=== PATIENT | female | born 1980 | race Caucasian/White ===

== ENCOUNTER 2016-04-11 08:02 | Emergency (ER) | payer OTHER ==
[2016-04-11] MEDS ORDERED: KETOROLAC 30 MG/ML VIAL (J1885) As Ordered ONE (08:34)
[2016-04-11] MEDS ORDERED: ONDANSETRON 4MG/2ML VIAL (J2405) As Ordered ONE (08:34)
[2016-04-11 09:06] LABS: BASO % 0.7 % (0.0-1.0); EOS # 0.2 K/mm3 (0.0-0.50); EOS % 3.4 % (0.0-3.0); LARGE UNSTAINED CELL # 0.1 K/mm3 (0.0-0.4); LARGE UNSTAINED CELL % 1.6 % (0.0-4.0); LYMPH # 1.4 K/mm3 (1.5-4.5); MEAN CORPUSCULAR HGB CONC 33.8 g/dl (32.0-36.5); MEAN CORPUSCULAR VOLUME 94.5 fl (80.0-96.0); MONO # 0.3 K/mm3 (0.0-0.8); MONO % 5.1 % (0.0-5.0); NEUTROPHILS # 4.5 K/mm3 (1.8-7.7); NEUTROPHILS % 68.2 % (36.0-66.0); PLATELET COUNT, AUTOMATED 219 k/mm3 (150-450); RED CELL DISTRIBUTION WIDTH 11.4 % (11.5-14.5); WHITE BLOOD COUNT 6.5 K/mm3 (4.0-10.0)
[2016-04-11 09:31] LABS: ALBUMIN 4.3 GM/DL (3.2-5.2); ALBUMIN/GLOBULIN RATIO 1.19 (1.00-1.93); ALKALINE PHOSPHATASE 66 U/L (45-117); ALT/SGPT 17 U/L (12-78); AMYLASE 25 U/L (25-115); ANION GAP 8 MEQ/L (8-16); AST/SGOT 15 U/L (15-37); BILIRUBIN,DIRECT 0.1 MG/DL (0.0-0.2); BILIRUBIN,TOTAL 0.5 MG/DL (0.2-1.0); BLOOD UREA NITROGEN 12 MG/DL (7-18); CARBON DIOXIDE LEVEL 28 MEQ/L (21-32); CHLORIDE LEVEL 106 MEQ/L (98-107); CREATININE FOR GFR 0.79 MG/DL (0.55-1.02); GLOMERULAR FILTRATION RATE > 60.0 (>60); GLUCOSE, FASTING 95 MG/DL (70-105); SODIUM LEVEL 142 MEQ/L (136-145); TOTAL PROTEIN 7.9 GM/DL (6.4-8.2)
--- NOTE | 2016-04-11 09:53 | REP ---
CT abdomen and pelvis without IV or oral contrast: Renal stone protocol. History: Renal colic. Findings: Digital bow repairer custom radiographs unremarkable. The lung bases are clear. The liver and the spleen are normal in size homogeneous in texture. No adrenal lesion is seen. The gallbladder is unremarkable. No pancreatic abnormality is seen. A normal appendix is observed in the right lower quadrant. Small and large intestinal bowel loops are unremarkable. The uterus is somewhat enlarged. No uterine or adnexal mass is seen. There is a 2 mm intrarenal calculus in the right mid kidney. No ureteral stone or hydronephrosis is seen. There is also a 2 mm intrarenal calculus in the upper pole of the left kidney. There is no evidence of free air. No abdominal wall defect is seen. Urinary bladder is unremarkable but largely empty at the time of scanning. Impression: 1. Mild uterine enlargement. 2. Bilateral intrarenal calculi. There is a 2 mm nonobstructive intrarenal calculus in each kidney. No ureteral calculi seen. No hydronephrosis noted. 3. Normal appendix. 4. No acute intra-abdominal abnormality seen. Signed by Eleazar Marion MD 04/11/2016 12:31 P
--- NOTE | 2016-04-11 10:06 | REP ---
PELVIC ULTRASOUND: Real-time sonographic evaluation of the pelvis is performed utilizing transabdominal and endovaginal technique. Bladder is collapsed. Uterus measures 10.1 x 5.6 x 8.3 cm. Scattered tiny calcifications are seen in the myometrium without focal fibroid. Endometrial thickness is 8 mm with trace endometrial fluid present. Right ovary measures 3.8 x 2.3 x 2.6 cm. There is a small paraovarian cystic structure on the right 1.0 cm in diameter. Left ovary could not be visualized. There is no other evidence of adnexal mass or free fluid. There is no evidence of right ovarian torsion with blood flow seen in the right ovary with duplex Doppler evaluation. IMPRESSION: Endometrial thickness 8 mm with tiny amount of endometrial fluid present. Left ovary could not be visualized. Right ovary demonstrates no torsion. There is a 1 cm right paraovarian cyst. No free fluid. Signed by Cm Lynn MD 04/11/2016 02:00 P
[2016-04-11] MEDS ORDERED: TAMSULOSIN 0.4 MG CAP As Ordered ONE (10:17)
[2016-04-11] MEDS ORDERED: PERCOCET 5MG/325MG TAB As Ordered ONE (10:17)
--- NOTE | 2016-04-11 10:43 | EDDOCDS ---
Physician Documentation [facility] Name: Bing Urias Age: 35 yrs Sex: Female : 1980 Arrival Date: 04/11/2016 Time: 08:02 Bed I4 / M4 Private MD: Disposition: 04/11/16 10:15 Discharged to Home/Self Care. Impression: Calculus of kidney - Bilateral Intrarenal Calculi, Dysmenorrhea, unspecified, Other ovarian cysts - Right, Abdominal and pelvic pain, Nausea and vomiting. - Condition is Stable. - Discharge Instructions: Kidney Stones, [id number], Ovarian Cyst, [id number], Dysmenorrhea, [id number]-if-Akup, Abdominal Pain, Adult, [id number]. - Prescriptions for Flomax 0.4 mg Oral Capsule, Sust. Release 24 hr - take 1 capsule by ORAL route once daily 1/2 hour following the same meal each day; 30 capsule. ZOFRAN ODT 4 mg - dissolve 1 tablet by ORAL route 4 times per day As needed do not chew, do not swallow whole; 10 tablet. Naprosyn 500 mg Oral Tablet - take 1 tablet by ORAL route 2 times per day take with food; 30 tablet. Percocet 5- 325 mg Oral Tablet - take 1 tablet by ORAL route every 6 hours As needed MDD: 4 tabs; 20 tablet. - Medication Reconciliation, Local Pharmacy Hours, Work Release Form - 2 day form. - Follow up: [facility]; When: 1 - 2 days; Reason: Recheck today's complaints, Continuance of care. Follow up: Emergency Department; Reason: Worsening of conditions. Follow up: [facility]; When: Call to arrange an appointment; Reason: Further diagnostic work-up, Recheck today's complaints, Continuance of care. Follow up: [facility] Mata; When: Call to arrange an appointment; Reason: Further diagnostic work-up, Recheck today's complaints, Continuance of care. - Problem is new. - Symptoms have improved. Historical: - Allergies: PENICILLINS; - Home Meds: 1. acetaminophen 325 mg oral tab 2 tabs (Last dose: 04/11/2016 00:02) - PMHx: Chronic Back pain; Migraine Headaches; Seasonal Allergies; TMJ; - PSHx: wisdom teeth extraction; - Social history: Smoking status: Patient states was never smoker of tobacco. No barriers to communication noted, The patient speaks fluent Italian, Speaks appropriately for age. - Family history: Not pertinent. - : The pt / caregiver states he / she is not on anticoagulants. Home medication list is obtained from the patient. - Exposure Risk Screening:: None identified. IT TECHNICAL SUPPORT SPECIALIST: 04/11 08:14 LMP 03/19/2016 hs1 Vital Signs: 08:14 BP 136 / 89; Pulse 72; Resp 18; Temp 97.8; Pulse Ox 99% ; Weight 92.99 kg / 205.01 lbs hs1 (R); Height 5 ft. 9 in. (175.26 cm); Pain 10/10; 09:28 BP 124 / 79; Pulse 60; Resp 18; Temp 98.4; Pulse Ox 100% ; Pain 9/10; jam1 10:27 Pulse 64; Resp 20; Temp 98.0; Pulse Ox 98% ; Pain 10/10; jam1 10:39 BP 140 / 78 LA Sitting (man/lg); kpj 08:14 Body Mass Index 30.27 (92.99 kg, 175.26 cm) hs1 MDM: 08:28 NS 0.9% 1000 ml IV at bolus once ordered. ef1 08:28 Ondansetron 4 mg IVP once ordered. ef1 08:28 ketorolac 30 mg IVP once ordered. ef1 08:28 IV Saline Lock ordered. ef1 08:28 Undress patient appropriately for examination ordered. ef1 08:28 UCG by Nursing ordered. ef1 08:29 Amylase Ordered. EDMS 08:29 Basic Metabolic Profile Ordered. EDMS 08:29 CBC with Diff Ordered. EDMS 08:29 Lipase Ordered. EDMS 08:29 Liver Profile Ordered. EDMS 08:29 Urinalysis Ordered. EDMS 08:29 Urine Culture Ordered. EDMS 08:30 CT ABD & PELVIS: No Contrast Ordered. EDMS 08:30 NOTHING BY MOUTH+DIET ordered. EDMS 08:30 -US Pelvic Non-Ob Complete Ordered. EDMS 08:31 DUPLEX SCAN LIMITED (DOPPLER)+US Ordered. EDMS 08:31 Financial registration complete. lg 08:34 [facility] [place] was scanned into [employer] and attached to record. lg 09:09 Transvaginal NON- US Ordered. EDMS 09:26 CBC with Diff Reviewed. ef1 09:26 Urinalysis Reviewed. ef1 09:47 Amylase Reviewed. ef1 09:47 Basic Metabolic Profile Reviewed. ef1 09:47 Lipase Reviewed. ef1 09:47 Liver Profile Reviewed. ef1 10:14 Tamsulosin Extended Release 24 hour Capsule 0.4 mg PO once ordered. ef1 10:14 oxyCODONE-acetaminophen 5 mg-325 mg 1 tabs PO once ordered. ef1 Point of Care Testing: Urine : 08:36 hCG Reading: Negative; jam1 Ranges: Administered Medications: 08:48 Drug: NS 0.9% 1000 ml [sodium chloride 0.9 % intravenous solution] Route: IV; Rate: kpj bolus; Site: right antecubital; 10:39 Follow up: IV Status: Infusion discontinued [facility] 08:48 Drug: Ondansetron 4 mg [ondansetron HCl 2 mg/mL intravenous solution (2 mL)] Route: kpj IVP; Site: right antecubital; 09:33 Follow up: Response: Nausea is decreased [facility] 08:50 Drug: ketorolac 30 mg [ketorolac 30 mg/mL (1 mL) injection solution (1 mL)] Route: IVP; kpj Site: right antecubital; 09:33 Follow up: Response: Pain is unchanged, physician notified j 10:20 Drug: Tamsulosin 0.4 mg [tamsulosin 0.4 mg capsule (1 caps)] Route: PO; [facility] 10:38 Follow up: Response: Pt left department before re-evaluation is appropriate [facility] 10:20 Drug: oxyCODONE-acetaminophen 1 tabs [oxycodone-acetaminophen 5 mg-325 mg tablet (1 kpj tabs)] Route: PO; 10:38 Follow up: Response: Confirmed pt not driving.; Pt left department before re-evaluation kpj is appropriate Signatures: Dispatcher [employer] Galilea Johnston RN RN j Ciera Kat, Shreyas Reg lg Brooke Lewis, PA-C PA-C ef1 Angela Zafar RN RN hs1 The chart was reviewed and I authenticate all verbal orders and agree with the evaluation and treatment provided.Attachments: 08:34 [facility] Payment Agreement lg MTDD
--- NOTE | 2016-04-11 10:43 | EDDOCDS ---
Nurse's Notes [facility] Name: Bing Urias Age: 35 yrs Sex: Female : 1980 Arrival Date: 04/11/2016 Time: 08:02 Bed I4 / M4 Private MD: Diagnosis: Calculus of kidney-Bilateral Intrarenal Calculi;Dysmenorrhea, unspecified;Other ovarian cysts-Right;Abdominal and pelvic pain;Nausea and vomiting Presentation: 04/11 08:08 Presenting complaint: Patient states: was seen in [place] [facility] and was diagnosed hs1 with dysfunctional uterine bleeding. States pain started Sunday and bleeding started Sunday. Patient states not bleeding at present spotting (red to dark red). Patient here this morning due to pain now across entire abdomen and also in back. Risk factors: The patient reports no loss of conciousness prior to arrival. This patient has not had a hysterectomy. This patient has not begun menopause. Adult Sepsis Screening: The patient does not have new or worsening altered mentation. Patient's respiratory rate is less than 22. Systolic blood pressure is greater than 100. Patient has a qSOFA score of 0- Negative Sepsis Screen. Suicide/Homicide risk assessment- the patient denies having any suicidal and/or homicidal ideations and does not present with any other emotional, behavioral or mental health complaints. Status: The patient is an active duty hotel services sales representative. Transition of care: patient was not received from another setting of care. 08:08 Acuity: PORFIRIO Level 3 hs1 08:08 Method Of Arrival: Walkin/Carried/Asstd hs1 Triage Assessment: 08:13 General: Appears uncomfortable, Behavior is appropriate for age, cooperative. Pain: hs1 Pain currently is 10 out of 10 on a pain scale. HIV screening NA for this visit Offered previously. : Reports vaginal bleeding that is spotty. MATERIALS PLANNER: 08:14 LMP 03/19/2016 hs1 Historical: - Allergies: PENICILLINS; - Home Meds: 1. acetaminophen 325 mg oral tab 2 tabs (Last dose: 04/11/2016 00:02) - PMHx: Chronic Back pain; Migraine Headaches; Seasonal Allergies; TMJ; - PSHx: wisdom teeth extraction; - Social history: Smoking status: Patient states was never smoker of tobacco. No barriers to communication noted, The patient speaks fluent Bulgarian, Speaks appropriately for age. - Family history: Not pertinent. - : The pt / caregiver states he / she is not on anticoagulants. Home medication list is obtained from the patient. - Exposure Risk Screening:: None identified. Screenin:15 Screening information is obtained from the patient. Fall risk: No risks identified. hs1 Assistance ADL's: requires no assistance with activities of daily living. Abuse/DV Screen: The patient / caregiver reports he/she is: not in a situation that causes fear, pain or injury. Nutritional screening: No deficits noted. Advance Directives: There is no active DNR order. home support is adequate. Assessment: 08:45 General: Appears in no apparent distress, well nourished, well groomed, Behavior is kpj appropriate for age, pleasant. Pain: Location: abdomen Pain currently is 9 out of 10 on a pain scale. Pain radiates to low back area and mid back area Quality of pain is described as aching. Neurological: Level of Consciousness is awake, alert, Oriented to person, place, time. Respiratory: Airway is patent Respiratory effort is even, unlabored, Respiratory pattern is regular, symmetrical. GI: Abdomen is non- distended obese, Bowel sounds present X 4 quads. Abd is soft X 4 quads Abd is tender to palpation X 4 quads. Reports diarrhea, lower abdominal pain, upper abd pain, nausea, vomiting. : pt reports spotty vaginal bleeding. Derm: Skin is pink, warm & dry. 09:31 General: Appears in no apparent distress, Behavior is appropriate for age. Pain: kpj Location: abdomen Pain currently is 9 out of 10 on a pain scale. Pain radiates to mid back area and low back area Quality of pain is described as aching. Neurological: Level of Consciousness is awake, alert. Respiratory: Airway is patent Respiratory effort is even, unlabored. GI: Reports lower abdominal pain, upper abd pain, nausea. Derm: Skin is pink, warm & dry. 10:39 General: Appears uncomfortable, Behavior is appropriate for age, pleasant. Pain: kpj Location: abdomen Pain currently is 9 out of 10 on a pain scale. Pain radiates to mid back area and low back area Quality of pain is described as aching. Neurological: Level of Consciousness is awake, alert. Respiratory: Airway is patent Respiratory effort is even, unlabored, Respiratory pattern is regular, symmetrical. GI: Reports lower abdominal pain, upper abd pain, nausea. : Reports vaginal bleeding that is spotty. Derm: Skin is pink, warm & dry. Vital Signs: 08:14 BP 136 / 89; Pulse 72; Resp 18; Temp 97.8; Pulse Ox 99% ; Weight 92.99 kg (R); Height 5 hs1 ft. 9 in. (175.26 cm); Pain 10/10; 09:28 BP 124 / 79; Pulse 60; Resp 18; Temp 98.4; Pulse Ox 100% ; Pain 9/10; jam1 10:27 Pulse 64; Resp 20; Temp 98.0; Pulse Ox 98% ; Pain 10/10; jam1 10:39 BP 140 / 78 LA Sitting (man/lg); kpj 08:14 Body Mass Index 30.27 (92.99 kg, 175.26 cm) hs1 Vitals: 08:14 Log In Time: April 11, 2016 at 08:04. hs1 ED Course: 08:04 Patient visited by Nahomy Green. jp5 08:04 Patient moved to Waiting jp5 08:11 Triage Initiated hs1 08:15 The patient / caregiver is instructed regarding the plan of care and ED course. hs1 08:18 Patient moved to I4 / M4 hs1 08:20 Brooke Lewis PA-C is PHCP. ef1 08:20 Tyron Carvajal MD is Attending Physician. ef1 08:20 Patient visited by Brooke Lewis PA-C. ef1 08:24 Pt greeted and oriented to ED. Patient advised of names of staff involved in care, jam1 location of call mistry, wait times and NPO status. Patient has correct armband on for positive identification. Placed in gown. Bed in low position. Call light in reach. Side rails up X 1. Door closed. 08:33 Urinalysis Sent. jam1 08:33 Urine Culture Sent. jam1 08:34 [facility] Payment Agreement was scanned into [employer] and attached to record. lg 08:45 Resting quietly. kpj 08:48 Inserted saline lock: 20 gauge in left antecubital area. kpj 08:50 Patient visited by Brooke Lewis PA-C. ef1 08:52 Patient moved to Ultrasound eg2 08:55 Amylase Sent. kpj 08:55 Basic Metabolic Profile Sent. kpj 08:55 CBC with Diff Sent. kpj 08:55 Lipase Sent. kpj 08:55 Liver Profile Sent. kpj 09:24 Patient moved to I4 / M4 kpj 09:26 Patient visited by Brooke Lewis PA-C. ef1 09:31 No apparent distress. Resting quietly. Awaiting lab results. Waiting for radiology kp results. 09:31 The patient / caregiver is instructed regarding the plan of care and ED course. Diet: [facility] Patient is NPO. 09:31 IV is patent, is intact, is free of redness or swelling. solution is infusing as [facility] ordered. 09:47 Patient visited by Brooke Lewis PA-C. ef1 09:55 Patient has correct armband on for positive identification. Bed in low position. Call jam1 light in reach. Side rails up X 1. Adult w/ patient. Door closed. 10:09 CT ABD & PELVIS: No Contrast Returned. EDMS 10:09 -US Pelvic Non-Ob Complete Returned. EDMS 10:14 Patient visited by Brooke Lewis PA-C. ef1 10:15 JOSIE Griffith is Referral Physician. ef1 10:15 Angel Brody OB is Referral Physician. ef1 10:20 Luisito Mata is Referral Physician. ef1 10:39 Discontinued lock intact, bleeding controlled, pressure dressing applied, No kpj redness/swelling at site. No procedures done that require assistance. Administered Medications: 08:48 Drug: NS 0.9% 1000 ml [sodium chloride 0.9 % intravenous solution] Route: IV; Rate: kpj bolus; Site: right antecubital; 10:39 Follow up: IV Status: Infusion discontinued kpj 08:48 Drug: Ondansetron 4 mg [ondansetron HCl 2 mg/mL intravenous solution (2 mL)] Route: kpj IVP; Site: right antecubital; 09:33 Follow up: Response: Nausea is decreased kpj 08:50 Drug: ketorolac 30 mg [ketorolac 30 mg/mL (1 mL) injection solution (1 mL)] Route: IVP; [facility] Site: right antecubital; 09:33 Follow up: Response: Pain is unchanged, physician notified kpj 10:20 Drug: Tamsulosin 0.4 mg [tamsulosin 0.4 mg capsule (1 caps)] Route: PO; kpj 10:38 Follow up: Response: Pt left department before re-evaluation is appropriate [facility] 10:20 Drug: oxyCODONE-acetaminophen 1 tabs [oxycodone-acetaminophen 5 mg-325 mg tablet (1 kpj tabs)] Route: PO; 10:38 Follow up: Response: Confirmed pt not driving.; Pt left department before re-evaluation [facility] is appropriate Point of Care Testing: Urine : 08:36 hCG Reading: Negative; jam1 Ranges: Intake: 10:39 IV: 700.00ml (NS); Total: 700.00ml. [facility] Order Results: Lab Order: Amylase; SPEC'M 04/11/16 08:53 Test: AMYLASE; Value: 25; Range: 25-115; Units: U/L; Status: F Lab Order: Basic Metabolic Profile; SPEC'M 04/11/16 08:53 Test: GLUCOSE, FASTING; Value: 95; Range: 70-105; Units: MG/DL; Status: F Test: BLOOD UREA NITROGEN; Value: 12; Range: 7-18; Units: MG/DL; Status: F Test: CREATININE FOR GFR; Value: 0.79; Range: 0.55-1.02; Units: MG/DL; Status: F Test: GLOMERULAR FILTRATION RATE; Value: > 60.0; Range: >60; Status: F Test: SODIUM LEVEL; Value: 142; Range: 136-145; Units: MEQ/L; Status: F Test: POTASSIUM SERUM; Value: 4.0; Range: 3.5-5.1; Units: MEQ/L; Status: F Test: CHLORIDE LEVEL; Value: 106; Range: 98-107; Units: MEQ/L; Status: F Test: CARBON DIOXIDE LEVEL; Value: 28; Range: 21-32; Units: MEQ/L; Status: F Test: ANION GAP; Value: 8; Range: 8-16; Units: MEQ/L; Status: F Test: CALCIUM LEVEL; Value: 9.0; Range: 8.5-10.1; Units: MG/DL; Status: F Test Note: ; Units are mL/min/1.73 m2 Chronic Kidney Disease Staging per NKF: Stage I & II GFR >=60 Normal to Mildly Decreased Stage III GFR 30-59 Moderately Decreased Stage IV GFR 15-29 Severely Decreased Stage V GFR <15 Very Little GFR Left ESRD GFR <15 on CODE ENFORCEMENT SUPERVISOR Lab Order: CBC with Diff; SPEC'M 04/11/16 08:53 Test: WHITE BLOOD COUNT; Value: 6.5; Range: 4.0-10.0; Units: K/mm3; Status: F Test: RED BLOOD COUNT; Value: 4.13; Range: 4.00-5.40; Units: M/mm3; Status: F Test: HEMOGLOBIN; Value: 13.2; Range: 12.0-16.0; Units: g/dl; Status: F Test: HEMATOCRIT; Value: 39.1; Range: 36.0-47.0; Units: %; Status: F Test: MEAN CORPUSCULAR VOLUME; Value: 94.5; Range: 80.0-96.0; Units: fl; Status: F Test: MEAN CORPUSCULAR HEMOGLOBIN; Value: 32.0; Range: 27.0-33.0; Units: pg; Status: F Test: MEAN CORPUSCULAR HGB CONC; Value: 33.8; Range: 32.0-36.5; Units: g/dl; Status: F Test: RED CELL DISTRIBUTION WIDTH; Value: 11.4; Range: 11.5-14.5; Abnormal: Below low normal; Units: %; Status: F Test: PLATELET COUNT, AUTOMATED; Value: 219; Range: 150-450; Units: k/mm3; Status: F Test: NEUTROPHILS %; Value: 68.2; Range: 36.0-66.0; Abnormal: Above high normal; Units: %; Status: F Test: LYMPH %; Value: 21.0; Range: 24.0-44.0; Abnormal: Below low normal; Units: %; Status: F Test: MONO %; Value: 5.1; Range: 0.0-5.0; Abnormal: Above high normal; Units: %; Status: F Test: EOS %; Value: 3.4; Range: 0.0-3.0; Abnormal: Above high normal; Units: %; Status: F Test: BASO %; Value: 0.7; Range: 0.0-1.0; Units: %; Status: F Test: LARGE UNSTAINED CELL %; Value: 1.6; Range: 0.0-4.0; Units: %; Status: F Test: NEUTROPHILS #; Value: 4.5; Range: 1.8-7.7; Units: K/mm3; Status: F Test: LYMPH #; Value: 1.4; Range: 1.5-4.5; Abnormal: Below low normal; Units: K/mm3; Status: F Test: MONO #; Value: 0.3; Range: 0.0-0.8; Units: K/mm3; Status: F Test: EOS #; Value: 0.2; Range: 0.0-0.50; Units: K/mm3; Status: F Test: BASO #; Value: 0.0; Range: 0.0-0.2; Units: K/mm3; Status: F Test: LARGE UNSTAINED CELL #; Value: 0.1; Range: 0.0-0.4; Units: K/mm3; Status: F Lab Order: Lipase; SPEC'M 04/11/16 08:53 Test: LIPASE; Value: 144; Range: 73-393; Units: U/L; Status: F Lab Order: Liver Profile; SPEC'M 04/11/16 08:53 Test: AST/SGOT; Value: 15; Range: 15-37; Units: U/L; Status: F Test: ALT/SGPT; Value: 17; Range: 12-78; Units: U/L; Status: F Test: ALKALINE PHOSPHATASE; Value: 66; Range: 45-117; Units: U/L; Status: F Test: BILIRUBIN,TOTAL; Value: 0.5; Range: 0.2-1.0; Units: MG/DL; Status: F Test: BILIRUBIN,DIRECT; Value: 0.1; Range: 0.0-0.2; Units: MG/DL; Status: F Test: TOTAL PROTEIN; Value: 7.9; Range: 6.4-8.2; Units: GM/DL; Status: F Test: ALBUMIN; Value: 4.3; Range: 3.2-5.2; Units: GM/DL; Status: F Test: ALBUMIN/GLOBULIN RATIO; Value: 1.19; Range: 1.00-1.93; Status: F Lab Order: Urinalysis; SPEC'M 04/11/16 08:34 Test: APPEARANCE, URINE; Value: HAZY; Range: CLEAR; Status: F Test: COLOR, URINE; Value: YELLOW; Range: YELLOW; Status: F Test: PH,URINE; Value: 5.0; Range: 5.0-9.0; Units: UNITS; Status: F Test: SPECIFIC GRAVITY URINE AUTO; Value: 1.025; Range: 1.002-1.035; Status: F Test: PROTEIN, URINE AUTO; Value: 1+; Range: NEGATIVE; Abnormal: Above high normal; Units: mg/dL; Status: F Test: GLUCOSE, URINE (UA) AUTO; Value: NEGATIVE; Range: NEGATIVE; Units: mg/dL; Status: F Test: KETONE, URINE AUTO; Value: NEGATIVE; Range: NEGATIVE; Units: mg/dL; Status: F Test: UROBILINOGEN, URINE AUTO; Value: 0.2; Range: 0.0-2.0; Units: mg/dL; Status: F Test: BILIRUBIN, URINE AUTO; Value: NEGATIVE; Range: NEGATIVE; Status: F Test: NITRITE, URINE AUTO; Value: NEGATIVE; Range: NEGATIVE; Status: F Test: LEUKOCYTE ESTERASE, URINE AUTO; Value: NEGATIVE; Range: NEGATIVE; Status: F Test: BLOOD, URINE BLOOD; Value: 1+; Range: NEGATIVE; Abnormal: Above high normal; Status: F Test: WBC, URINE AUTO; Value: 1; Range: 0-3; Units: /HPF; Status: F Test: RBC, URINE AUTO; Value: 3; Range: 0-3; Units: /HPF; Status: F Test: BACTERIA, URINE AUTO; Value: NEGATIVE; Range: NEGATIVE; Status: F Test: SQUAMOUS EPITHELIAL CELL UR AU; Value: 6; Range: 0-6; Units: /HPF; Status: F Test: MUCUS, URINE; Value: MODERATE; Range: NEGATIVE; Status: F Test: HYALINE CAST, URINE AUTO; Value: 0; Range: 0-1; Units: /LPF; Status: F Radiology Order: CT ABD & PELVIS: No Contrast Test: CT ABD & PELVIS: No Contrast REASON FOR EXAMINATION: Renal colic; CT abdomen and pelvis without IV or oral contrast: Renal stone protocol.; ; History: Renal colic.; ; Findings: Digital professional driver radiographs unremarkable. The lung bases are clear.; The liver and the spleen are normal in size homogeneous in texture. No adrenal; lesion is seen. The gallbladder is unremarkable. No pancreatic abnormality is; seen. A normal appendix is observed in the right lower quadrant. Small and; large intestinal bowel loops are unremarkable. The uterus is somewhat enlarged.; No uterine or adnexal mass is seen.; ; There is a 2 mm intrarenal calculus in the right mid kidney. No ureteral stone; or hydronephrosis is seen. There is also a 2 mm intrarenal calculus in the upper; pole of the left kidney. There is no evidence of free air. No abdominal wall; defect is seen. Urinary bladder is unremarkable but largely empty at the time of; scanning.; ; Impression:; ; ; 1. Mild uterine enlargement.; 2. Bilateral intrarenal calculi. There is a 2 mm nonobstructive intrarenal; calculus in each kidney. No ureteral calculi seen. No hydronephrosis noted.; 3. Normal appendix.; 4. No acute intra-abdominal abnormality seen.; ; Unreviewed; Radiology Order: -US Pelvic Non-Ob Complete Test: -US Pelvic Non-Ob Complete REASON FOR EXAMINATION: Vaginal Bleeding - Nn-; PELVIC ULTRASOUND:; ; Real-time sonographic evaluation of the pelvis is performed utilizing; transabdominal and endovaginal technique. Bladder is collapsed. Uterus measures; 10.1 x 5.6 x 8.3 cm. Scattered tiny calcifications are seen in the myometrium; without focal fibroid. Endometrial thickness is 8 mm with trace endometrial; fluid present. Right ovary measures 3.8 x 2.3 x 2.6 cm. There is a small; paraovarian cystic structure on the right 1.0 cm in diameter. Left ovary could; not be visualized. There is no other evidence of adnexal mass or free fluid.; There is no evidence of right ovarian torsion with blood flow seen in the right; ovary with duplex Doppler evaluation.; ; IMPRESSION:; Endometrial thickness 8 mm with tiny amount of endometrial fluid present. Left; ovary could not be visualized. Right ovary demonstrates no torsion. There is a; 1 cm right paraovarian cyst. No free fluid.; ; Unreviewed; Outcome: 10:15 Discharge ordered by Provider. ef1 10:39 Discharge Assessment: Patient awake, alert and oriented x 3. No cognitive and/or kpj functional deficits noted. Patient verbalized understanding of disposition instructions. patient administered narcotics - yes. Pt provided with safe discharge. The following High Risk Discharge criteria are identified: None. Discharged to home ambulatory, with friend. Condition: stable. Discharge instructions given to patient, Instructed on discharge instructions, follow up and referral plans. medication usage, no driving heavy equipment, no drinking with medication, Demonstrated understanding of instructions, medications, Pt was receptive of discharge instructions/ teaching. Prescriptions given X 4, Work note provided to patient. CT Study completed. Ultrasound Study completed. Property sent home with patient. 10:42 Patient left the ED. [facility] Signatures: Dispatcher [employer] EDMS Galilea José, RN RN Francoise Busch, OTA OTA jam1 Ciera Kat, Reg Reg lg Nisha Flores eg2 Brooke Lewis, PA-C PAReshmaC ef1 Angela Zafar RN RN hs1 Nahomy Green 5 MTDD
--- NOTE | 2016-04-13 11:43 | EDDOCDS ---
Physician Documentation [facility] Name: Bing Urias Age: 35 yrs Sex: Female : 1980 Arrival Date: 04/11/2016 Time: 08:02 Bed I4 / M4 Private MD: Disposition: 04/11/16 10:15 Discharged to Home/Self Care. Impression: Calculus of kidney - Bilateral Intrarenal Calculi, Dysmenorrhea, unspecified, Other ovarian cysts - Right, Abdominal and pelvic pain, Nausea and vomiting. - Condition is Stable. - Discharge Instructions: Kidney Stones, [id number], Ovarian Cyst, Hybb-[id number], Dysmenorrhea, [id number]-[id number], Abdominal Pain, Adult, [id number]. - Prescriptions for Flomax 0.4 mg Oral Capsule, Sust. Release 24 hr - take 1 capsule by ORAL route once daily 1/2 hour following the same meal each day; 30 capsule. ZOFRAN ODT 4 mg - dissolve 1 tablet by ORAL route 4 times per day As needed do not chew, do not swallow whole; 10 tablet. Naprosyn 500 mg Oral Tablet - take 1 tablet by ORAL route 2 times per day take with food; 30 tablet. Percocet 5- 325 mg Oral Tablet - take 1 tablet by ORAL route every 6 hours As needed MDD: 4 tabs; 20 tablet. - Medication Reconciliation, Local Pharmacy Hours, Work Release Form - 2 day form. - Follow up: [facility]; When: 1 - 2 days; Reason: Recheck today's complaints, Continuance of care. Follow up: Emergency Department; Reason: Worsening of conditions. Follow up: OB Angel Brody; When: Call to arrange an appointment; Reason: Further diagnostic work-up, Recheck today's complaints, Continuance of care. Follow up: Luisito Mata; When: Call to arrange an appointment; Reason: Further diagnostic work-up, Recheck today's complaints, Continuance of care. - Problem is new. - Symptoms have improved. Historical: - Allergies: PENICILLINS; - Home Meds: 1. acetaminophen 325 mg oral tab 2 tabs (Last dose: 04/11/2016 00:02) - PMHx: Chronic Back pain; Migraine Headaches; Seasonal Allergies; TMJ; - PSHx: wisdom teeth extraction; - Social history: Smoking status: Patient states was never smoker of tobacco. No barriers to communication noted, The patient speaks fluent Belarusian, Speaks appropriately for age. - Family history: Not pertinent. - : The pt / caregiver states he / she is not on anticoagulants. Home medication list is obtained from the patient. - Exposure Risk Screening:: None identified. WRAP TURNER: 04/11 08:14 LMP 03/19/2016 hs1 Vital Signs: 08:14 BP 136 / 89; Pulse 72; Resp 18; Temp 97.8; Pulse Ox 99% ; Weight 92.99 kg / 205.01 lbs hs1 (R); Height 5 ft. 9 in. (175.26 cm); Pain 10/10; 09:28 BP 124 / 79; Pulse 60; Resp 18; Temp 98.4; Pulse Ox 100% ; Pain 9/10; jam1 10:27 Pulse 64; Resp 20; Temp 98.0; Pulse Ox 98% ; Pain 10/10; jam1 10:39 BP 140 / 78 LA Sitting (man/lg); kpj 08:14 Body Mass Index 30.27 (92.99 kg, 175.26 cm) hs1 MDM: 08:28 NS 0.9% 1000 ml IV at bolus once ordered. ef1 08:28 Ondansetron 4 mg IVP once ordered. ef1 08:28 ketorolac 30 mg IVP once ordered. ef1 08:28 IV Saline Lock ordered. ef1 08:28 Undress patient appropriately for examination ordered. ef1 08:28 UCG by Nursing ordered. ef1 08:29 Amylase Ordered. EDMS 08:29 Basic Metabolic Profile Ordered. EDMS 08:29 CBC with Diff Ordered. EDMS 08:29 Lipase Ordered. EDMS 08:29 Liver Profile Ordered. EDMS 08:29 Urinalysis Ordered. EDMS 08:29 Urine Culture Ordered. EDMS 08:30 CT ABD & PELVIS: No Contrast Ordered. EDMS 08:30 NOTHING BY MOUTH+DIET ordered. EDMS 08:30 -US Pelvic Non-Ob Complete Ordered. EDMS 08:31 DUPLEX SCAN LIMITED (DOPPLER)+US Ordered. EDMS 08:31 Financial registration complete. lg 08:34 [facility] Payment Agreement was scanned into [employer] and attached to record. lg 09:09 Transvaginal NON- US Ordered. EDMS 09:26 CBC with Diff Reviewed. ef1 09:26 Urinalysis Reviewed. ef1 09:47 Amylase Reviewed. ef1 09:47 Basic Metabolic Profile Reviewed. ef1 09:47 Lipase Reviewed. ef1 09:47 Liver Profile Reviewed. ef1 10:14 Tamsulosin Extended Release 24 hour Capsule 0.4 mg PO once ordered. ef1 10:14 oxyCODONE-acetaminophen 5 mg-325 mg 1 tabs PO once ordered. ef1 14:53 T-Sheet-- Draft Copy was scanned into [employer] and attached to record. gb 14:54 Radiology Report was scanned into [employer] and attached to record. Point of Care Testing: Urine : 08:36 hCG Reading: Negative; jam1 Ranges: Administered Medications: 08:48 Drug: NS 0.9% 1000 ml [sodium chloride 0.9 % intravenous solution] Route: IV; Rate: kpj bolus; Site: right antecubital; 10:39 Follow up: IV Status: Infusion discontinued [facility] 08:48 Drug: Ondansetron 4 mg [ondansetron HCl 2 mg/mL intravenous solution (2 mL)] Route: kpj IVP; Site: right antecubital; 09:33 Follow up: Response: Nausea is decreased kp 08:50 Drug: ketorolac 30 mg [ketorolac 30 mg/mL (1 mL) injection solution (1 mL)] Route: IVP; [facility] Site: right antecubital; 09:33 Follow up: Response: Pain is unchanged, physician notified j 10:20 Drug: Tamsulosin 0.4 mg [tamsulosin 0.4 mg capsule (1 caps)] Route: PO; kpj 10:38 Follow up: Response: Pt left department before re-evaluation is appropriate kpj 10:20 Drug: oxyCODONE-acetaminophen 1 tabs [oxycodone-acetaminophen 5 mg-325 mg tablet (1 kpj tabs)] Route: PO; 10:38 Follow up: Response: Confirmed pt not driving.; Pt left department before re-evaluation kpj is appropriate Signatures: Dispatcher [employer] EDMS Galilea José RN RN kpj Julissa Serna, Reg Reg gb Ciera Kat, Reg Reg lg Brooke Lewis, PA-C PA-C ef1 Angela Zafar, RN RN hs1 The chart was reviewed and I authenticate all verbal orders and agree with the evaluation and treatment provided.Attachments: 08:34 [facility] Payment Agreement lg 14:53 T-Sheet-- Draft Copy gb Chart Complete MTDD
--- NOTE | 2016-04-13 11:43 | EDDOCDS ---
Physician Documentation [facility] Name: Bing Urias Age: 35 yrs Sex: Female : 1980 Arrival Date: 04/11/2016 Time: 08:02 Bed I4 / M4 Private MD: Disposition: 04/11/16 10:15 Discharged to Home/Self Care. Impression: Calculus of kidney - Bilateral Intrarenal Calculi, Dysmenorrhea, unspecified, Other ovarian cysts - Right, Abdominal and pelvic pain, Nausea and vomiting. - Condition is Stable. - Discharge Instructions: Kidney Stones, Bzmi-og-Vnmh, Ovarian Cyst, Qnqq-ho-Yxbf, Dysmenorrhea, Asvv-kj-Chwk, Abdominal Pain, Adult, Xuwr-rg-Ymrq. - Prescriptions for Flomax 0.4 mg Oral Capsule, Sust. Release 24 hr - take 1 capsule by ORAL route once daily 1/2 hour following the same meal each day; 30 capsule. ZOFRAN ODT 4 mg - dissolve 1 tablet by ORAL route 4 times per day As needed do not chew, do not swallow whole; 10 tablet. Naprosyn 500 mg Oral Tablet - take 1 tablet by ORAL route 2 times per day take with food; 30 tablet. Percocet 5- 325 mg Oral Tablet - take 1 tablet by ORAL route every 6 hours As needed MDD: 4 tabs; 20 tablet. - Medication Reconciliation, Local Pharmacy Hours, Work Release Form - 2 day form. - Follow up: [facility]; When: 1 - 2 days; Reason: Recheck today's complaints, Continuance of care. Follow up: Emergency Department; Reason: Worsening of conditions. Follow up: OB Angel Brody; When: Call to arrange an appointment; Reason: Further diagnostic work-up, Recheck today's complaints, Continuance of care. Follow up: Luisito Mata; When: Call to arrange an appointment; Reason: Further diagnostic work-up, Recheck today's complaints, Continuance of care. - Problem is new. - Symptoms have improved. Historical: - Allergies: PENICILLINS; - Home Meds: 1. acetaminophen 325 mg oral tab 2 tabs (Last dose: 04/11/2016 00:02) - PMHx: Chronic Back pain; Migraine Headaches; Seasonal Allergies; TMJ; - PSHx: wisdom teeth extraction; - Social history: Smoking status: Patient states was never smoker of tobacco. No barriers to communication noted, The patient speaks fluent Swedish, Speaks appropriately for age. - Family history: Not pertinent. - : The pt / caregiver states he / she is not on anticoagulants. Home medication list is obtained from the patient. - Exposure Risk Screening:: None identified. 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 9 in. (175.26 cm); Pain 10/10; 09:28 BP 124 / 79; Pulse 60; Resp 18; Temp 98.4; Pulse Ox 100% ; Pain 9/10; jam1 10:27 Pulse 64; Resp 20; Temp 98.0; Pulse Ox 98% ; Pain 10/10; jam1 10:39 BP 140 / 78 LA Sitting (man/lg); kpj 08:14 Body Mass Index 30.27 (92.99 kg, 175.26 cm) hs1 MDM: 08:28 NS 0.9% 1000 ml IV at bolus once ordered. ef1 08:28 Ondansetron 4 mg IVP once ordered. ef1 08:28 ketorolac 30 mg IVP once ordered. ef1 08:28 IV Saline Lock ordered. ef1 08:28 Undress patient appropriately for examination ordered. ef1 08:28 UCG by Nursing ordered. ef1 08:29 Amylase Ordered. EDMS 08:29 Basic Metabolic Profile Ordered. EDMS 08:29 CBC with Diff Ordered. EDMS 08:29 Lipase Ordered. EDMS 08:29 Liver Profile Ordered. EDMS 08:29 Urinalysis Ordered. EDMS 08:29 Urine Culture Ordered. EDMS 08:30 CT ABD & PELVIS: No Contrast Ordered. EDMS 08:30 NOTHING BY MOUTH+DIET ordered. EDMS 08:30 -US Pelvic Non-Ob Complete Ordered. EDMS 08:31 DUPLEX SCAN LIMITED (DOPPLER)+US Ordered. EDMS 08:31 Financial registration complete. lg 08:34 [place] [place] Payment Agreement was scanned into [employer] and attached to record. lg 09:09 Transvaginal NON- US Ordered. EDMS 09:26 CBC with Diff Reviewed. ef1 09:26 Urinalysis Reviewed. ef1 09:47 Amylase Reviewed. ef1 09:47 Basic Metabolic Profile Reviewed. ef1 09:47 Lipase Reviewed. ef1 09:47 Liver Profile Reviewed. ef1 10:14 Tamsulosin Extended Release 24 hour Capsule 0.4 mg PO once ordered. ef1 10:14 oxyCODONE-acetaminophen 5 mg-325 mg 1 tabs PO once ordered. ef1 14:53 T-Sheet-- Draft Copy was scanned into [employer] and attached to record. gb 14:54 Radiology Report was scanned into [employer] and attached to record. Point of Care Testing: Urine : 08:36 hCG Reading: Negative; jam1 Ranges: Administered Medications: 08:48 Drug: NS 0.9% 1000 ml [sodium chloride 0.9 % intravenous solution] Route: IV; Rate: kpj bolus; Site: right antecubital; 10:39 Follow up: IV Status: Infusion discontinued [facility] 08:48 Drug: Ondansetron 4 mg [ondansetron HCl 2 mg/mL intravenous solution (2 mL)] Route: kpj IVP; Site: right antecubital; 09:33 Follow up: Response: Nausea is decreased kp 08:50 Drug: ketorolac 30 mg [ketorolac 30 mg/mL (1 mL) injection solution (1 mL)] Route: IVP; [facility] Site: right antecubital; 09:33 Follow up: Response: Pain is unchanged, physician notified j 10:20 Drug: Tamsulosin 0.4 mg [tamsulosin 0.4 mg capsule (1 caps)] Route: PO; kpj 10:38 Follow up: Response: Pt left department before re-evaluation is appropriate kpj 10:20 Drug: oxyCODONE-acetaminophen 1 tabs [oxycodone-acetaminophen 5 mg-325 mg tablet (1 kpj tabs)] Route: PO; 10:38 Follow up: Response: Confirmed pt not driving.; Pt left department before re-evaluation kpj is appropriate Signatures: Dispatcher [employer] EDMS Galilea José RN RN kpj Julissa Serna, Reg Reg gb Ciera Kat, Reg Reg lg Brooke Lewis, PA-C PA-C ef1 Angela Zafar, RN RN hs1 The chart was reviewed and I authenticate all verbal orders and agree with the evaluation and treatment provided.Attachments: 08:34 [facility] Payment Agreement lg 14:53 T-Sheet-- Draft Copy gb Chart Complete MTDD
--- NOTE | 2016-04-13 11:43 | EDDOCDS ---
Nurse's Notes [facility] Name: Bing Urias Age: 35 yrs Sex: Female : 1980 Arrival Date: 04/11/2016 Time: 08:02 Bed I4 / M4 Private MD: Diagnosis: Calculus of kidney-Bilateral Intrarenal Calculi;Dysmenorrhea, unspecified;Other ovarian cysts-Right;Abdominal and pelvic pain;Nausea and vomiting Presentation: 04/11 08:08 Presenting complaint: Patient states: was seen in [place] [facility] and was diagnosed hs1 with dysfunctional uterine bleeding. States pain started Sunday and bleeding started Sunday. Patient states not bleeding at present spotting (red to dark red). Patient here this morning due to pain now across entire abdomen and also in back. Risk factors: The patient reports no loss of conciousness prior to arrival. This patient has not had a hysterectomy. This patient has not begun menopause. Adult Sepsis Screening: The patient does not have new or worsening altered mentation. Patient's respiratory rate is less than 22. Systolic blood pressure is greater than 100. Patient has a qSOFA score of 0- Negative Sepsis Screen. Suicide/Homicide risk assessment- the patient denies having any suicidal and/or homicidal ideations and does not present with any other emotional, behavioral or mental health complaints. 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 Transition of care: patient was not received from another setting of care. 08:08 Acuity: PORFIRIO Level 3 hs1 08:08 Method Of Arrival: Walkin/Carried/Asstd hs1 Triage Assessment: 08:13 General: Appears uncomfortable, Behavior is appropriate for age, cooperative. Pain: hs1 Pain currently is 10 out of 10 on a pain scale. HIV screening NA for this visit Offered previously. : Reports vaginal bleeding that is spotty. 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 acetaminophen 325 mg oral tab 2 tabs (Last dose: 04/11/2016 00:02) - PMHx: Chronic Back pain; Migraine Headaches; Seasonal Allergies; TMJ; - PSHx: wisdom teeth extraction; - Social history: Smoking status: Patient states was never smoker of tobacco. No barriers to communication noted, The patient speaks fluent Frisian, Speaks appropriately for age. - Family history: Not pertinent. - : The pt / caregiver states he / she is not on anticoagulants. Home medication list is obtained from the patient. - Exposure Risk Screening:: None identified. Screenin:15 Screening information is obtained from the patient. Fall risk: No risks identified. hs1 Assistance ADL's: requires no assistance with activities of daily living. Abuse/DV Screen: The patient / caregiver reports he/she is: not in a situation that causes fear, pain or injury. Nutritional screening: No deficits noted. Advance Directives: There is no active DNR order. home support is adequate. Assessment: 08:45 General: Appears in no apparent distress, well nourished, well groomed, Behavior is kpj appropriate for age, pleasant. Pain: Location: abdomen Pain currently is 9 out of 10 on a pain scale. Pain radiates to low back area and mid back area Quality of pain is described as aching. Neurological: Level of Consciousness is awake, alert, Oriented to person, place, time. Respiratory: Airway is patent Respiratory effort is even, unlabored, Respiratory pattern is regular, symmetrical. GI: Abdomen is non- distended obese, Bowel sounds present X 4 quads. Abd is soft X 4 quads Abd is tender to palpation X 4 quads. Reports diarrhea, lower abdominal pain, upper abd pain, nausea, vomiting. : pt reports spotty vaginal bleeding. Derm: Skin is pink, warm & dry. 09:31 General: Appears in no apparent distress, Behavior is appropriate for age. Pain: kpj Location: abdomen Pain currently is 9 out of 10 on a pain scale. Pain radiates to mid back area and low back area Quality of pain is described as aching. Neurological: Level of Consciousness is awake, alert. Respiratory: Airway is patent Respiratory effort is even, unlabored. GI: Reports lower abdominal pain, upper abd pain, nausea. Derm: Skin is pink, warm & dry. 10:39 General: Appears uncomfortable, Behavior is appropriate for age, pleasant. Pain: kpj Location: abdomen Pain currently is 9 out of 10 on a pain scale. Pain radiates to mid back area and low back area Quality of pain is described as aching. Neurological: Level of Consciousness is awake, alert. Respiratory: Airway is patent Respiratory effort is even, unlabored, Respiratory pattern is regular, symmetrical. GI: Reports lower abdominal pain, upper abd pain, nausea. : Reports vaginal bleeding that is spotty. Derm: Skin is pink, warm & dry. Vital Signs: 08:14 BP 136 / 89; Pulse 72; Resp 18; Temp 97.8; Pulse Ox 99% ; Weight 92.99 kg (R); Height 5 hs1 ft. 9 in. (175.26 cm); Pain 10/10; 09:28 BP 124 / 79; Pulse 60; Resp 18; Temp 98.4; Pulse Ox 100% ; Pain 9/10; jam1 10:27 Pulse 64; Resp 20; Temp 98.0; Pulse Ox 98% ; Pain 10/10; jam1 10:39 BP 140 / 78 LA Sitting (man/lg); kpj 08:14 Body Mass Index 30.27 (92.99 kg, 175.26 cm) hs1 Vitals: 08:14 Log In Time: April 11, 2016 at 08:04. hs1 ED Course: 08:04 Patient visited by Nahomy Green. jp5 08:04 Patient moved to Waiting jp5 08:11 Triage Initiated hs1 08:15 The patient / caregiver is instructed regarding the plan of care and ED course. hs1 08:18 Patient moved to I4 / M4 hs1 08:20 Brooke Lewis PA-C is PHCP. ef1 08:20 Tyron Carvajal MD is Attending Physician. ef1 08:20 Patient visited by Brooke Lewis PA-C. ef1 08:24 Pt greeted and oriented to ED. Patient advised of names of staff involved in care, jam1 location of call mistry, wait times and NPO status. Patient has correct armband on for positive identification. Placed in gown. Bed in low position. Call light in reach. Side rails up X 1. Door closed. 08:33 Urinalysis Sent. jam1 08:33 Urine Culture Sent. jam1 08:34 [facility] Agreement was scanned into [employer] and attached to record. lg 08:45 Resting quietly. kpj 08:48 Inserted saline lock: 20 gauge in left antecubital area. kpj 08:50 Patient visited by Brooke Lewis PA-C. ef1 08:52 Patient moved to Ultrasound eg2 08:55 Amylase Sent. kpj 08:55 Basic Metabolic Profile Sent. kpj 08:55 CBC with Diff Sent. kpj 08:55 Lipase Sent. kpj 08:55 Liver Profile Sent. kpj 09:24 Patient moved to I4 / M4 kpj 09:26 Patient visited by Brooke Lewis PA-C. ef1 09:31 No apparent distress. Resting quietly. Awaiting lab results. Waiting for radiology kpj results. 09:31 The patient / caregiver is instructed regarding the plan of care and ED course. Diet: [facility] Patient is NPO. 09:31 IV is patent, is intact, is free of redness or swelling. solution is infusing as kp ordered. 09:47 Patient visited by Brooke Lewis PA-C. ef1 09:55 Patient has correct armband on for positive identification. Bed in low position. Call jam1 light in reach. Side rails up X 1. Adult w/ patient. Door closed. 10:09 CT ABD & PELVIS: No Contrast Returned. EDMS 10:09 -US Pelvic Non-Ob Complete Returned. EDMS 10:14 Patient visited by Brooke Lewis PA-C. ef1 10:15 JOSIE Griffith is Referral Physician. ef1 10:15 Angel Brody OB is Referral Physician. ef1 10:20 Luisito Mata is Referral Physician. ef1 10:39 Discontinued lock intact, bleeding controlled, pressure dressing applied, No kpj redness/swelling at site. No procedures done that require assistance. 14:53 T-Sheet-- Draft Copy was scanned into [employer] and attached to record. gb 14:54 Radiology Report was scanned into [employer] and attached to record. gb Administered Medications: 08:48 Drug: NS 0.9% 1000 ml [sodium chloride 0.9 % intravenous solution] Route: IV; Rate: kpj bolus; Site: right antecubital; 10:39 Follow up: IV Status: Infusion discontinued kpj 08:48 Drug: Ondansetron 4 mg [ondansetron HCl 2 mg/mL intravenous solution (2 mL)] Route: kpj IVP; Site: right antecubital; 09:33 Follow up: Response: Nausea is decreased kpj 08:50 Drug: ketorolac 30 mg [ketorolac 30 mg/mL (1 mL) injection solution (1 mL)] Route: IVP; [facility] Site: right antecubital; 09:33 Follow up: Response: Pain is unchanged, physician notified [facility] 10:20 Drug: Tamsulosin 0.4 mg [tamsulosin 0.4 mg capsule (1 caps)] Route: PO; [facility] 10:38 Follow up: Response: Pt left department before re-evaluation is appropriate [facility] 10:20 Drug: oxyCODONE-acetaminophen 1 tabs [oxycodone-acetaminophen 5 mg-325 mg tablet (1 [facility] tabs)] Route: PO; 10:38 Follow up: Response: Confirmed pt not driving.; Pt left department before re-evaluation [facility] is appropriate Point of Care Testing: Urine : 08:36 hCG Reading: Negative; jam1 Ranges: Intake: 10:39 IV: 700.00ml (NS); Total: 700.00ml. [facility] Order Results: Lab Order: Amylase; SPEC'M 04/11/16 08:53 Test: AMYLASE; Value: 25; Range: 25-115; Units: U/L; Status: F Lab Order: Basic Metabolic Profile; SPEC'M 04/11/16 08:53 Test: GLUCOSE, FASTING; Value: 95; Range: 70-105; Units: MG/DL; Status: F Test: BLOOD UREA NITROGEN; Value: 12; Range: 7-18; Units: MG/DL; Status: F Test: CREATININE FOR GFR; Value: 0.79; Range: 0.55-1.02; Units: MG/DL; Status: F Test: GLOMERULAR FILTRATION RATE; Value: > 60.0; Range: >60; Status: F Test: SODIUM LEVEL; Value: 142; Range: 136-145; Units: MEQ/L; Status: F Test: POTASSIUM SERUM; Value: 4.0; Range: 3.5-5.1; Units: MEQ/L; Status: F Test: CHLORIDE LEVEL; Value: 106; Range: 98-107; Units: MEQ/L; Status: F Test: CARBON DIOXIDE LEVEL; Value: 28; Range: 21-32; Units: MEQ/L; Status: F Test: ANION GAP; Value: 8; Range: 8-16; Units: MEQ/L; Status: F Test: CALCIUM LEVEL; Value: 9.0; Range: 8.5-10.1; Units: MG/DL; Status: F Test Note: ; Units are mL/min/1.73 m2 Chronic Kidney Disease Staging per NKF: Stage I & II GFR >=60 Normal to Mildly Decreased Stage III GFR 30-59 Moderately Decreased Stage IV GFR 15-29 Severely Decreased Stage V GFR <15 Very Little GFR Left ESRD GFR <15 on ABNORMAL PSYCHOLOGY TEACHER Lab Order: CBC with Diff; SPEC'M 04/11/16 08:53 Test: WHITE BLOOD COUNT; Value: 6.5; Range: 4.0-10.0; Units: K/mm3; Status: F Test: RED BLOOD COUNT; Value: 4.13; Range: 4.00-5.40; Units: M/mm3; Status: F Test: HEMOGLOBIN; Value: 13.2; Range: 12.0-16.0; Units: g/dl; Status: F Test: HEMATOCRIT; Value: 39.1; Range: 36.0-47.0; Units: %; Status: F Test: MEAN CORPUSCULAR VOLUME; Value: 94.5; Range: 80.0-96.0; Units: fl; Status: F Test: MEAN CORPUSCULAR HEMOGLOBIN; Value: 32.0; Range: 27.0-33.0; Units: pg; Status: F Test: MEAN CORPUSCULAR HGB CONC; Value: 33.8; Range: 32.0-36.5; Units: g/dl; Status: F Test: RED CELL DISTRIBUTION WIDTH; Value: 11.4; Range: 11.5-14.5; Abnormal: Below low normal; Units: %; Status: F Test: PLATELET COUNT, AUTOMATED; Value: 219; Range: 150-450; Units: k/mm3; Status: F Test: NEUTROPHILS %; Value: 68.2; Range: 36.0-66.0; Abnormal: Above high normal; Units: %; Status: F Test: LYMPH %; Value: 21.0; Range: 24.0-44.0; Abnormal: Below low normal; Units: %; Status: F Test: MONO %; Value: 5.1; Range: 0.0-5.0; Abnormal: Above high normal; Units: %; Status: F Test: EOS %; Value: 3.4; Range: 0.0-3.0; Abnormal: Above high normal; Units: %; Status: F Test: BASO %; Value: 0.7; Range: 0.0-1.0; Units: %; Status: F Test: LARGE UNSTAINED CELL %; Value: 1.6; Range: 0.0-4.0; Units: %; Status: F Test: NEUTROPHILS #; Value: 4.5; Range: 1.8-7.7; Units: K/mm3; Status: F Test: LYMPH #; Value: 1.4; Range: 1.5-4.5; Abnormal: Below low normal; Units: K/mm3; Status: F Test: MONO #; Value: 0.3; Range: 0.0-0.8; Units: K/mm3; Status: F Test: EOS #; Value: 0.2; Range: 0.0-0.50; Units: K/mm3; Status: F Test: BASO #; Value: 0.0; Range: 0.0-0.2; Units: K/mm3; Status: F Test: LARGE UNSTAINED CELL #; Value: 0.1; Range: 0.0-0.4; Units: K/mm3; Status: F Lab Order: Lipase; SPEC'M 04/11/16 08:53 Test: LIPASE; Value: 144; Range: 73-393; Units: U/L; Status: F Lab Order: Liver Profile; SPEC'M 04/11/16 08:53 Test: AST/SGOT; Value: 15; Range: 15-37; Units: U/L; Status: F Test: ALT/SGPT; Value: 17; Range: 12-78; Units: U/L; Status: F Test: ALKALINE PHOSPHATASE; Value: 66; Range: 45-117; Units: U/L; Status: F Test: BILIRUBIN,TOTAL; Value: 0.5; Range: 0.2-1.0; Units: MG/DL; Status: F Test: BILIRUBIN,DIRECT; Value: 0.1; Range: 0.0-0.2; Units: MG/DL; Status: F Test: TOTAL PROTEIN; Value: 7.9; Range: 6.4-8.2; Units: GM/DL; Status: F Test: ALBUMIN; Value: 4.3; Range: 3.2-5.2; Units: GM/DL; Status: F Test: ALBUMIN/GLOBULIN RATIO; Value: 1.19; Range: 1.00-1.93; Status: F Lab Order: Urinalysis; SPEC'M 04/11/16 08:34 Test: APPEARANCE, URINE; Value: HAZY; Range: CLEAR; Status: F Test: COLOR, URINE; Value: YELLOW; Range: YELLOW; Status: F Test: PH,URINE; Value: 5.0; Range: 5.0-9.0; Units: UNITS; Status: F Test: SPECIFIC GRAVITY URINE AUTO; Value: 1.025; Range: 1.002-1.035; Status: F Test: PROTEIN, URINE AUTO; Value: 1+; Range: NEGATIVE; Abnormal: Above high normal; Units: mg/dL; Status: F Test: GLUCOSE, URINE (UA) AUTO; Value: NEGATIVE; Range: NEGATIVE; Units: mg/dL; Status: F Test: KETONE, URINE AUTO; Value: NEGATIVE; Range: NEGATIVE; Units: mg/dL; Status: F Test: UROBILINOGEN, URINE AUTO; Value: 0.2; Range: 0.0-2.0; Units: mg/dL; Status: F Test: BILIRUBIN, URINE AUTO; Value: NEGATIVE; Range: NEGATIVE; Status: F Test: NITRITE, URINE AUTO; Value: NEGATIVE; Range: NEGATIVE; Status: F Test: LEUKOCYTE ESTERASE, URINE AUTO; Value: NEGATIVE; Range: NEGATIVE; Status: F Test: BLOOD, URINE BLOOD; Value: 1+; Range: NEGATIVE; Abnormal: Above high normal; Status: F Test: WBC, URINE AUTO; Value: 1; Range: 0-3; Units: /HPF; Status: F Test: RBC, URINE AUTO; Value: 3; Range: 0-3; Units: /HPF; Status: F Test: BACTERIA, URINE AUTO; Value: NEGATIVE; Range: NEGATIVE; Status: F Test: SQUAMOUS EPITHELIAL CELL UR AU; Value: 6; Range: 0-6; Units: /HPF; Status: F Test: MUCUS, URINE; Value: MODERATE; Range: NEGATIVE; Status: F Test: HYALINE CAST, URINE AUTO; Value: 0; Range: 0-1; Units: /LPF; Status: F Lab Order: Urine Culture; SPEC'M 04/11/16 08:34 Test: URINE CULTURE; Value: <EXTERNAL COMMENT eCWMed> FULL REPORT IN LAB NOTES (eCW and [employer]).; Status: F Test: URINE CULTURE; Value: URINE CULTURE RESULT NO GROWTH CLINICAL SIGNIFICANCE 1 ORGANISM; Status: F Radiology Order: CT ABD & PELVIS: No Contrast Test: CT ABD & PELVIS: No Contrast REASON FOR EXAMINATION: Renal colic; CT abdomen and pelvis without IV or oral contrast: Renal stone protocol.; ; History: Renal colic.; ; Findings: Digital irrigationist radiographs unremarkable. The lung bases are clear.; The liver and the spleen are normal in size homogeneous in texture. No adrenal; lesion is seen. The gallbladder is unremarkable. No pancreatic abnormality is; seen. A normal appendix is observed in the right lower quadrant. Small and; large intestinal bowel loops are unremarkable. The uterus is somewhat enlarged.; No uterine or adnexal mass is seen.; ; There is a 2 mm intrarenal calculus in the right mid kidney. No ureteral stone; or hydronephrosis is seen. There is also a 2 mm intrarenal calculus in the upper; pole of the left kidney. There is no evidence of free air. No abdominal wall; defect is seen. Urinary bladder is unremarkable but largely empty at the time of; scanning.; ; Impression:; ; 1. Mild uterine enlargement.; ; 2. Bilateral intrarenal calculi. There is a 2 mm nonobstructive intrarenal; calculus in each kidney. No ureteral calculi seen. No hydronephrosis noted.; ; 3. Normal appendix.; ; 4. No acute intra-abdominal abnormality seen.; ; ; Signed by; Eleazar Marion MD 04/11/2016 12:31 P; Radiology Order: -US Pelvic Non-Ob Complete Test: -US Pelvic Non-Ob Complete REASON FOR EXAMINATION: Vaginal Bleeding - Nn-; PELVIC ULTRASOUND:; ; Real-time sonographic evaluation of the pelvis is performed utilizing; transabdominal and endovaginal technique. Bladder is collapsed. Uterus measures; 10.1 x 5.6 x 8.3 cm. Scattered tiny calcifications are seen in the myometrium; without focal fibroid. Endometrial thickness is 8 mm with trace endometrial; fluid present. Right ovary measures 3.8 x 2.3 x 2.6 cm. There is a small; paraovarian cystic structure on the right 1.0 cm in diameter. Left ovary could; not be visualized. There is no other evidence of adnexal mass or free fluid.; There is no evidence of right ovarian torsion with blood flow seen in the right; ovary with duplex Doppler evaluation.; ; IMPRESSION:; ; Endometrial thickness 8 mm with tiny amount of endometrial fluid present. Left; ovary could not be visualized. Right ovary demonstrates no torsion. There is a; 1 cm right paraovarian cyst. No free fluid.; ; ; Signed by; Cm Lynn MD 04/11/2016 02:00 P; Outcome: 10:15 Discharge ordered by Provider. ef1 10:39 Discharge Assessment: Patient awake, alert and oriented x 3. No cognitive and/or kpj functional deficits noted. Patient verbalized understanding of disposition instructions. patient administered narcotics - yes. Pt provided with safe discharge. The following High Risk Discharge criteria are identified: None. Discharged to home ambulatory, with friend. Condition: stable. Discharge instructions given to patient, Instructed on discharge instructions, follow up and referral plans. medication usage, no driving heavy equipment, no drinking with medication, Demonstrated understanding of instructions, medications, Pt was receptive of discharge instructions/ teaching. Prescriptions given X 4, Work note provided to patient. CT Study completed. Ultrasound Study completed. Property sent home with patient. 10:42 Patient left the ED. [facility] Signatures: Dispatcher [employer] EDMS Galilea José, RN RN j Francoise Wilks, ROAST MASTER ROAST MASTER jam1 Julissa Serna, Reg Reg gb Ciera Kat, Reg Reg lg Nisha Flores eg2 Brooke Lewis, PA-C PA-C ef1 Angela Zafar, RN RN hs1 Nahomy Green 5 Chart Complete MTDD
== END 2016-04-11 10:42 | disposition home or self-care (01) ==
LOC: M ED 08:02
DX: N94.6 Dysmenorrhea, unspecified (principal); N83.209 Unspecified ovarian cyst, unspecified side; R10.84 Generalized abdominal pain; R11.2 Nausea with vomiting, unspecified; M54.9 Dorsalgia, unspecified; G43.909 Migraine, unspecified, not intractable, without status migrainosus; J30.2 Other seasonal allergic rhinitis; M26.609 Unspecified temporomandibular joint disorder, unspecified side; Z88.0 Allergy status to penicillin
CPT/HCPCS: 36415; 74176; 76830; 76856; 80048; 80076; 81001; 81025; 82150; 83690; 85025; 87086; 93976; 96361; 96374; 96375; 99284; J1885; J2405